=== PATIENT | male | born 1985 | race Caucasian/White ===

== ENCOUNTER → 2020-05-07 | Outpatient (CLI) | payer OTHER ==
--- NOTE | 2020-05-16 18:15 | PF ---
[address] [address] PULMONARY FUNCTION REPORT Name: DENIS GARCIA [id number] Admission: 05/07/20 Attend Phys: Nirav Clayton MD Discharge: Date of : 81 Report #: [id number] THIS REPORT FOR: //name// CC: Nirav Clayton [facility] unknown DATE OF SERVICE: 05/07/2020 The FEV1/FVC ratio is normal at 74% with an FVC normal at 99%. The FEV1 is also normal at 92%. The KCO21-14 is also normal at 78%. While all of these values are normal, prebronchodilator on the patient's spirometry, there is a significant increase by 19% in the forced vital capacity and also a 19% FEV1 after the administration of a bronchodilator. The patient's post-bronchodilator FEV1 is noted to be 5.40 liters. Only a spirometry was performed. IMPRESSION: The spirometry is normal. There is, however, a significant increase in forced vital capacity and FEV1 consistent with a significant bronchodilator response to albuterol. This could be a normal finding; however, can also be seen in bronchial asthma. Clinical correlation is advised. <ELECTRONICALLY SIGNED> By: Papo Diaz MD 05/16/20 1815 [id number] Diaz MD /maurice
== END ==
LOC: M.PUL 11:00
PROVIDERS: ATTEND Orthopaedic Surgery
DX: J44.1 Chronic obstructive pulmonary disease with (acute) exacerbation (principal)